=== PATIENT | male | born 1980 | race Caucasian/White ===

== ENCOUNTER 2017-11-28 16:23 | Emergency (ER) | payer SELFPAY | END 2017-11-28 17:22 | disposition left against medical advice (07) | LOC: ER 16:23 | DX: Z53.21 Procedure and treatment not carried out due to patient leaving prior to being seen by health care provider (principal) ==

== ENCOUNTER 2018-04-30 14:27 | Emergency (ER) | payer BC ==
--- NOTE | 2018-04-30 15:34 | ER Document Report ---
ED Medical Screen (RME) - General Chief Complaint: Flank Pain Stated Complaint: FLANK PAIN Time Seen by Provider: 04/30/18 15:33 TRAVEL OUTSIDE OF THE [place] IN LAST 30 DAYS: No - Related Data Allergies/Adverse Reactions: No Known Allergies Allergy (Verified 04/30/18 14:33) Past Medical History Renal/ Medical History: Denies: Hx Peritoneal Dialysis Physical Exam - Vital signs Vitals: Temp Pulse Resp BP Pulse Ox 99.1 F 103 H 12 177/110 H 95 04/30/18 14:37 04/30/18 14:37 04/30/18 14:37 04/30/18 14:37 04/30/18 14:37 - General In distress: None - HEENT Head: Normocephalic, Atraumatic - Respiratory Respiratory status: No respiratory distress - Cardiovascular Rhythm: Regular Heart sounds: Normal auscultation - Abdominal Inspection: Normal Distension: No distension Bowel sounds: Normal - Back Back: Normal - No tenderness to percussion along the right flank no tenderness to percussion along the left flank - Extremities General upper extremity: Normal inspection General lower extremity: Normal inspection Shoulder: Normal Arm: Normal Elbow: Normal Forearm: Normal Wrist: Normal - Neurological Neuro grossly intact: Yes Course - Re-evaluation Re-evalutation: 04/30/18 16:53 This is a 37-year-old gentleman who presents for evaluation of isolated flank pain along the right side which was self-limited and resolve spontaneously last night. It made it difficult for him to sleep says that it resolved without any intervention. He notes that it is likely it was a kidney stone and his father is dull with them for many years though has never had one in the past he also notes his blood pressure is normal today it is higher because he gets nervous about being at the hospital. Will obtain urinalysis, offered the patient further diagnostic imaging including CT imaging of his chest abdomen and pelvis to further elucidate possible causes as well as labs though he declined. As he is declined further investigation following urinalysis which did not demonstrate any hematuria will defer further workup at this time plan for discharge with follow-up. - Vital Signs Vital signs: Temp Pulse Resp BP Pulse Ox 99.1 F 103 H 12 177/110 H 95 04/30/18 14:37 04/30/18 14:37 04/30/18 14:37 04/30/18 14:37 08/01/18 14:37 Doctor's Discharge - Discharge Condition: Stable Disposition: HOME, SELF-CARE Additional Instructions: That would be awesome your seen today in the emergency department for her flank pain. Is unclear what exactly caused your pain. You should continue to monitor herself for any worsening symptoms, if he has inability to breathe, worsening pain in your side, pain when you urinate or inability to eat or drink you should return to the emergency room because it may be more serious condition otherwise attempt to stay hydrated and continue to exercise regularly as he had in the past. Forms: Elevated Blood Pressure
[2018-04-30 16:19] LABS: APPEARANCE,URINE CLEAR; BILIRUBIN,URINE NEGATIVE (NEGATIVE); COLOR,URINE YELLOW; GLUCOSE, URINE NEGATIVE (NEGATIVE); KETONES,URINE NEGATIVE (NEGATIVE); LEUKOCYTE ESTERASE,URINE NEGATIVE (NEGATIVE); NITRITE,URINE NEGATIVE (NEGATIVE); PROTEIN,URINE NEGATIVE (NEGATIVE); URINE SPECIFIC GRAVITY 1.017; UROBILINOGEN,URINE NEGATIVE mg/dL (<2.0)
[2018-04-30 17:04] VITALS: BP 179/103
== END 2018-04-30 17:02 | disposition home or self-care (01) ==
LOC: ER 14:27
DX: R10.9 Unspecified abdominal pain (principal)
CPT/HCPCS: 81001; 99284

== ENCOUNTER 2018-05-04 13:38 | Emergency (ER) | payer BC ==
--- NOTE | 2018-05-04 14:09 | ER Document Report ---
ED Medical Screen (RME) - General Mode of Arrival: Ambulatory Information source: Patient TRAVEL OUTSIDE OF THE [place] IN LAST 30 DAYS: No <NATTY RODRIGUEZ - Last Filed: 05/04/18 14:01> <JOSSELNIKIERANFABRICIO - Last Filed: 05/04/18 14:43> - General Chief Complaint: Flank Pain Stated Complaint: FLANK PAIN Time Seen by Provider: 05/04/18 13:46 Notes: Patient is a 37 year old male with a history of pneumonia presenting to the emergency department complaining of right flank pain onset last week worsening last night. Patient describes the pain as a non radiating sharpness on his right flank. Patient expresses a concern for kidney stones further stating he has a strong family history of them. Patient also states he noticed some crackling in his lungs last night when attempting to sleep. Patient denies dysuria, hematuria, rashes or cough. GENERAL: Alert, interacts well. No acute distress. HEAD: Normocephalic, Atraumatic. NECK: Full range of motion. Supple. Trachea midline. LUNGS: Clear to auscultation bilaterally, no wheezes, rales, or rhonchi. No respiratory distress. HEART: Regular rate and rhythm. No murmurs, gallops, or rubs. EXTREMITIES: Moves all four extremities spontaneously. PSYCH: Normal affect, normal mood. BACK: No CVA tenderness to palpation. I have greeted and performed a rapid initial assessment of this patient. A comprehensive ED assessment and evaluation of the patient, analysis of test results and completion of the medical decision making process will be conducted by additional ED providers. (NATTY RODRIGUEZ) - Related Data Allergies/Adverse Reactions: No Known Allergies Allergy (Verified 05/04/18 13:39) Past Medical History - Social History Chew tobacco use (# tins/day): No Frequency of alcohol use: None Drug Abuse: None Pulmonary Medical History: Reports: Hx Pneumonia Renal/ Medical History: Denies: Hx Peritoneal Dialysis <NATTY RODRIGUEZ - Last Filed: 05/04/18 14:01> - Vital signs Vitals: Temp Pulse Resp BP Pulse Ox 98.8 F 94 22 H 176/103 H 96 05/04/18 13:45 05/04/18 13:45 05/04/18 13:45 05/04/18 13:45 05/04/18 13:45 Course - Laboratory Result Diagrams: 05/04/18 14:02 05/04/18 14:02 <FABRICIO ALCALA - Last Filed: 05/04/18 14:43> - Vital Signs Vital signs: Temp Pulse Resp BP Pulse Ox 98.8 F 94 22 H 176/103 H 96 05/04/18 13:45 05/04/18 13:45 05/04/18 13:45 05/04/18 13:45 05/04/18 13:45 - Laboratory Laboratory results interpreted by me: 05/04/18 14:02 Urine Ascorbic Acid 20 H
[2018-05-04 14:22] LABS: APPEARANCE,URINE CLEAR; BILIRUBIN,URINE NEGATIVE (NEGATIVE); COLOR,URINE YELLOW; GLUCOSE, URINE NEGATIVE (NEGATIVE); KETONES,URINE NEGATIVE (NEGATIVE); LEUKOCYTE ESTERASE,URINE NEGATIVE (NEGATIVE); NITRITE,URINE NEGATIVE (NEGATIVE); PROTEIN,URINE NEGATIVE (NEGATIVE); URINE SPECIFIC GRAVITY 1.012; UROBILINOGEN,URINE NEGATIVE mg/dL (<2.0)
[2018-05-04 14:24] LABS: ABSOLUTE BASOPHILS # (AUTO) 0.1 10^3/uL (0.0-0.2); ABSOLUTE EOSINOPHILS # (AUTO) 0.1 10^3/uL (0.0-0.6); ABSOLUTE LYMPHOCYTES (AUTO) 2.2 10^3/uL (0.5-4.7); ABSOLUTE MONOCYTES (AUTO) 0.6 10^3/uL (0.1-1.4); BASOPHILS % (AUTO) 0.5 % (0-2); EOSINOPHILS % (AUTO) 1.2 % (0-6); HEMATOCRIT 44.8 % (37.9-51.0); HEMOGLOBIN 15.3 g/dL (13.5-17.0); MEAN CORPUSCULAR HEMOGLOBIN 30.2 pg (27.0-33.4); MEAN CORPUSCULAR HGB CONC 34.1 g/dL (32.0-36.0); MEAN CORPUSCULAR VOLUME 89 fl (80-97); MONOCYTES % (AUTO) 6.1 % (3-13); PLATELET COUNT 193 10^3/uL (150-450); RED BLOOD COUNT 5.06 10^6/uL (4.35-5.55); RED CELL DISTRIBUTION WIDTH 13.9 % (11.5-14.0); SEGMENTED NEUTROPHILS % (AUTO) 70.2 % (42-78); TOTAL CELLS COUNTED % (AUTO) 100 %; WHITE BLOOD COUNT 9.9 10^3/uL (4.0-10.5)
[2018-05-04 14:46] LABS: ALANINE AMINOTRANSFERASE 57 U/L (21-72); ALBUMIN 3.9 g/dL (3.5-5.0); ALKALINE PHOSPHATASE 49 U/L (38-126); ANION GAP 15 (5-19); ASPARTATE AMINO TRANSFERASE 42 U/L (17-59); BILIRUBIN,DIRECT 0.3 mg/dL (0.0-0.4); BILIRUBIN,TOTAL 0.6 mg/dL (0.2-1.3); BLOOD UREA NITROGEN 14 mg/dL (7-20); CALCIUM 9.2 mg/dL (8.4-10.2); CARBON DIOXIDE 26 mmol/L (22-30); CHLORIDE 102 mmol/L (98-107); GLUCOSE 122 mg/dL (75-110); POTASSIUM 4.4 mmol/L (3.6-5.0); SODIUM 142.8 mmol/L (137-145); TOTAL PROTEIN 6.6 g/dL (6.3-8.2)
--- NOTE | 2018-05-04 14:53 | RADIOLOGY REPORT (SQ) ---
EXAM DESCRIPTION: CHEST 2 VIEWS COMPLETED DATE/TIME: 05/04/2018 2:16 pm REASON FOR STUDY: right lower chest pain, cough COMPARISON: None. EXAM PARAMETERS: NUMBER OF VIEWS: two views TECHNIQUE: Digital Frontal and Lateral radiographic views of the chest acquired. RADIATION DOSE: NA LIMITATIONS: none FINDINGS: LUNGS AND PLEURA: No acute infiltrates or effusions. MEDIASTINUM AND HILAR STRUCTURES: No masses or contour abnormalities. HEART AND VASCULAR STRUCTURES: The heart is normal. The pulmonary vasculature is normal. BONES: No acute findings. HARDWARE: Changes of cervical fusion. IMPRESSION: NO ACUTE DISEASE. TECHNICAL DOCUMENTATION: JOB ID: [id number] SC-[id number] 2010 [employer]- All Rights Reserved Reading location - IP/workstation name: [email or web address]
--- NOTE | 2018-05-04 15:17 | RADIOLOGY REPORT (SQ) ---
EXAM DESCRIPTION: CT LTD RENAL STONE PROTOCOL ON COMPLETED DATE/TIME: 05/04/2018 2:56 pm REASON FOR STUDY: right flank pain COMPARISON: None. TECHNIQUE: CT scan of the abdomen and pelvis performed without intravenous or oral contrast. Images reviewed with lung, soft tissue, and bone windows. Reconstructed coronal and sagittal MPR images revi ewed. All images stored on PACS. All CT scanners at this facility use dose modulation, iterative reconstruction, and/or weight based d osing when appropriate to reduce radiation dose to as low as reasonably achievable (ALARA). [facility]: Dose Right [facility]: CareDose [facility]: Dose Right [facility]: Teradose 4D [facility]: [employer] RADIATION DOSE: CT Rad equipment meets quality standard of care and radiation dose reduction techniq ues were employed. CTDIvol: 19.2 mGy. DLP: 1169 mGy-cm.mGy. LIMITATIONS: None. FINDINGS: LOWER CHEST: No abnormality seen. NON-CONTRASTED LIVER, SPLEEN, ADRENALS: Liver: Fatty infiltration. Spleen: No abnormality. Adrenal s: No abnormality. PANCREAS: No abnormality. GALLBLADDER: No abnormality. RIGHT KIDNEY AND URETER: Nonobstructive calculus in the upper and lower pole of the right kidney. D LEFT KIDNEY AND URETER: Nonobstructive calculus lower pole left kidney . Ectasias of the left upper collecting system and left ureter down to a mid left ureteral calculus measuring 1.6 cm in length x 0.8 cm in transverse diameter x 1.1 cm in AP diameter. The remainder of the left ureter demonstrates no abnormality. AORTA AND RETROPERITONEUM: No abnormality seen. BOWEL AND PERITONEAL CAVITY: Hiatal hernia. Colonic diverticulosis. APPENDIX: Normal. PELVIS, BLADDER, AND ABDOMINAL WALL:Prostate and seminal vesicles: Prostatic calculi. Urinary bladd er: No abnormality. Umbilical hernia containing fat. BONES: Lumbar spondylosis. Vacuum disc phenomena and degenerative disc disease at L2-3, L3-4, L5-S1 . Spondylolysis of L5 with grade 1 anterolisthesis of L5 on S1. IMPRESSION: There is evidence of an obstructing mid left ureteral calculus measuring 1.6 x 0.8 x 1.1 cm. Bilateral nonobstructive renal calculi. COMMENT: Quality ID # [id number]: Final reports with documentation of one or more dose reduction techniques (e.g., Automated exposure control, adjustment of the mA and/or kV according to patient size, use of iterative reconstruction technique) TECHNICAL DOCUMENTATION: JOB ID: [id number] SC-69 2010 [employer]- All Rights Reserved Reading location - IP/workstation name: [email or web address]
--- NOTE | 2018-05-04 15:31 | ER Document Report ---
ED GI/ - General Chief Complaint: Flank Pain Stated Complaint: FLANK PAIN Time Seen by Provider: 05/04/18 13:46 Mode of Arrival: Ambulatory Information source: Patient Notes: 37-year-old male with a strong family history of kidney stones who presents today for his second visit with some flank pain. Patient states he has had some intermittent bilateral pain, previously on the left but now recently on the right. Patient was seen here a few days ago and since he had no blood in the urine, and he is a very healthy 37-year-old male, patient was discharged home with strict return precautions. Patient presents today for some continued pain. Patient denies any fevers, vomiting, pain or difficulty urinating, dark urine, any abdominal pain, or any vomiting. Denies any cough or shortness of breath. TRAVEL OUTSIDE OF THE [place] IN LAST 30 DAYS: No - HPI Patient complains to provider of: Other - See above Onset: Other - See above Quality of pain: Other - See above Severity at maximum: Moderate Severity in ED: Mild Pain Level: 2 Context: Other - See above Location: Other - See above Associated symptoms: Other - See above Exacerbated by: Denies Relieved by: Denies Similar symptoms previously: Yes Recently seen / treated by doctor: Yes - Related Data Allergies/Adverse Reactions: No Known Allergies Allergy (Verified 05/04/18 13:39) Past Medical History - General Information source: Patient - Social History Smoking Status: Never Smoker Cigarette use (# per day): No Chew tobacco use (# tins/day): No Smoking Education Provided: No Frequency of alcohol use: None Drug Abuse: None Family History: Other - See above Patient has suicidal ideation: No Patient has homicidal ideation: No Pulmonary Medical History: Reports: Hx Pneumonia Renal/ Medical History: Denies: Hx Peritoneal Dialysis Review of Systems - Review of Systems Constitutional: denies: Fever Cardiovascular: denies: Chest pain, Palpitations, Dizziness Respiratory: denies: Short of breath Gastrointestinal: denies: Vomiting Genitourinary: denies: Dysuria Skin: Other - no hives. denies: Rash Neurological/Psychological: Other - no slurred speech -: Yes All other systems reviewed and negative Physical Exam - Vital signs Vitals: Temp Pulse Resp BP Pulse Ox 98.8 F 94 22 H 176/103 H 96 05/04/18 13:45 05/04/18 13:45 05/04/18 13:45 05/04/18 13:45 05/04/18 13:45 Notes: Reviewed vital signs and nursing note as charted by RN. CONSTITUTIONAL: Alert and oriented and responds appropriately to questions. Well -appearing; well-nourished HEAD: Normocephalic; atraumatic CARD: Regular rate and rhythm; no murmurs; symmetric distal pulses RESP: Normal chest excursion without splinting or tachypnea; breath sounds clear and equal bilaterally; no wheezes, no rhonchi, no rales ABD/GI: Normal bowel sounds; non-distended; soft, non-tender to deep palpation of all 4 quadrants of the abdomen BACK: The back appears normal and is non-tender to palpation, no flank tenderness currently or erythema or swelling noted EXT: Normal ROM in all joints; non-tender to palpation; no edema SKIN: Normal color for age and race; no acute lesions noted NEURO: Moves all extremities equally; Motor and sensory function intact PSYCH: The patient's mood and manner are appropriate. Grooming and personal hygiene are appropriate. Course - Re-evaluation Re-evalutation: Given the above history and physical examination with strong family history, I will obtain basic labs, renal colic CT, urine analysis, and reassess. Patient currently has no abdominal pain. He has been afebrile. Lungs are clear bilaterally with good oxygen saturation. I do believe currently the pulmonary embolism and acute bacterial pneumonia to be unlikely. 05/04/18 15:30 Chest x-ray shows normal heart, normal mediastinum, no fractures, normal lung erazo, no pneumothorax. CT scan is recorded. Given the size of the current stone I will consult urology at [facility] given that we have no urologist [employer] here at this facility. 05/04/18 15:34 I have called and spoken directly to the urologist at [facility] Dr. Araujo. He has asked me to have the CT scan placed on a CD and he will most likely be able to see the patient tomorrow. I have provided the patient his contact information. I will provide pain medications and strict return precautions. Patient defers pain medications at this time. - Vital Signs Vital signs: Temp Pulse Resp BP Pulse Ox 98.8 F 94 22 H 176/103 H 96 05/04/18 13:45 05/04/18 13:45 05/04/18 13:45 05/04/18 13:45 05/04/18 13:45 - Laboratory Result Diagrams: 05/04/18 14:02 05/04/18 14:02 Laboratory results interpreted by me: 05/04/18 05/04/18 14:02 14:02 Creatinine 1.32 H Glucose 122 H Urine Ascorbic Acid 20 H Discharge - Discharge Clinical Impression: Urinary tract obstruction by kidney stone Condition: Good Disposition: HOME, SELF-CARE Additional Instructions: Come back immediately with any increased pain, fevers, vomiting, inability urinate, change in location or quality of pain, or any other acute problems. Please make sure that you call Dr. Araujo's office tomorrow at [phone] at 8 AM when the office opens. Tell them that he was seen in the emergency department and you told to see the urologist in the office tomorrow. In addition to the pain medications that I have provided, you can also take 600 mg of Motrin every 6 hours and the antinausea medications as needed. Prescriptions: Hydrocodone/Acetaminophen [[place] 5-325 Tablet] 1 each PO Q6 PRN #12 tablet PRN Reason: For Pain Ondansetron [Zofran Odt 4 mg Tablet] 1 tab PO Q6H #15 tab.[email or web address]
[2018-05-04 15:59] VITALS: BP 187/107
== END 2018-05-04 15:59 | disposition home or self-care (01) ==
LOC: ER 13:38
DX: N20.2 Calculus of kidney with calculus of ureter (principal); R10.9 Unspecified abdominal pain
CPT/HCPCS: 36415; 71046; 76380; 80053; 81001; 85025; 99284